=== PATIENT | male | born 1935 | race Caucasian/White ===

== ENCOUNTER 2018-04-06 15:09 | Emergency (ER) | payer MEDICARE, OTHER ==
[~2018-04-06] VITALS: Ht 172.7 cm; Wt 67.4 kg
[2018-04-06 15:50] LABS: BASOPHILS % (AUTO) 0.5 % (0-1); EOSINOPHILS # (AUTO) 0.1 X10'3 (0-0.9); EOSINOPHILS % (AUTO) 1.7 % (0-6); HEMATOCRIT 36.2 % (42.0-52.0); HEMOGLOBIN 11.8 g/dl (14.0-17.9); LYMPHOCYTES # (AUTO) 1.1 X10'3 (1.1-4.8); LYMPHOCYTES % (AUTO) 18.2 % (21-51); MEAN CORPUSCULAR HEMOGLOBIN 30.2 PG (27.0-31.0); MEAN CORPUSCULAR HGB CONC 32.7 % (33.0-36.5); MEAN CORPUSCULAR VOLUME 92.4 FL (78-98); MEAN PLATELET VOLUME 7.8 FL (7.4-10.4); MONOCYTES # (AUTO) 0.5 X10'3 (0-0.9); MONOCYTES % (AUTO) 7.7 % (2-12); NEUTROPHILS # (AUTO) 4.5 X10'3 (1.8-7.7); NEUTROPHILS % (AUTO) 71.9 % (42-75); PLATELET COUNT 213 X10'3 (140-440); RED BLOOD COUNT 3.91 X10'6 (4.70-6.10); RED CELL DISTRIBUTION WIDTH 15.7 % (11.5-14.5); WHITE BLOOD COUNT 6.3 X10'3 (4.5-11.0)
[2018-04-06 15:51] LABS: PARTIAL THROMBOPLASTIN TIME 28 SECONDS (22-32); PROTHROMBIN TIME 10.3 SECONDS (9.0-12.0)
[2018-04-06 15:57] LABS: CLARITY,URINE CLEAR (Clear); COLOR,URINE YELLOW (Yellow); GLUCOSE, URINE NEGATIVE (Neg); KETONES,URINE NEGATIVE (Neg); LEUKOCYTE ESTERASE ,URINE NEGATIVE (Neg); NITRITES, URINE NEGATIVE (Neg); OCCULT BLOOD,URINE NEGATIVE (Neg); PH,URINE 5.5 (4.8-8.0); PROTEIN,URINE NEGATIVE (Neg); UA COLLECTION TYPE VOIDED; UROBILINOGEN,URINE 0.2 E.U/dL (0.2-1.0)
[2018-04-06 15:57] LABS: ALANINE AMINOTRANSFERASE 29 U/L (12-78); ALBUMIN 3.1 G/DL (3.4-5.0); ALBUMIN/GLOBULIN RATIO 0.8 (1.1-1.5); ALKALINE PHOSPHATASE 122 IU/L (46-116); ANION GAP 8 (8-16); ASPARTATE AMINO TRANSFERASE 21 U/L (10-37); BILIRUBIN,TOTAL 0.5 MG/DL (0.1-1.0); BLOOD UREA NITROGEN 44 MG/DL (7-18); BUN/CREATININE RATIO 32.8 (5.4-32.0); CALCIUM 8.9 MG/DL (8.5-10.1); CHLORIDE 105 MMOL/L (99-107); CREATININE 1.34 MG/DL (0.60-1.10); GLUCOSE 237 MG/DL (70-104); POTASSIUM 4.7 MMOL/L (3.5-5.1); SODIUM 139 MMOL/L (135-145); TOTAL CARBON DIOXIDE 26.5 MMOL/L (24-32); TOTAL PROTEIN 7.1 G/DL (6.4-8.2); eGFR 51 ML/MIN
[2018-04-06] MEDS ORDERED: normal saline 1000ML IV soln IVB ONE (16:20)
[2018-04-06 17:16] VITALS: BP 115/66
== END 2018-04-06 17:36 | disposition home or self-care (01) ==
LOC: ER 15:10
DX: F03.90 Unspecified dementia, unspecified severity, without behavioral disturbance, psychotic disturbance, mood disturbance, and anxiety (principal); I48.91 Unspecified atrial fibrillation; I25.10 Atherosclerotic heart disease of native coronary artery without angina pectoris; I10 Essential (primary) hypertension; R41.0 Disorientation, unspecified; I25.2 Old myocardial infarction; E11.9 Type 2 diabetes mellitus without complications; Z95.1 Presence of aortocoronary bypass graft
CPT/HCPCS: 36415; 70450; 71045; 80053; 81003; 83605; 84145; 85025; 85610; 85730; 87040; 99285; J7030

== ENCOUNTER 2018-05-10 11:36 | Inpatient (IN) | payer MEDICARE, OTHER ==
[~2018-05-10] VITALS: Ht 170.2 cm; Wt 87.0 kg
[2018-05-10 13:42] LABS: BASOPHILS % (AUTO) 0.5 % (0-1); EOSINOPHILS # (AUTO) 0.1 X10'3 (0-0.9); EOSINOPHILS % (AUTO) 1.1 % (0-6); HEMATOCRIT 34.3 % (42.0-52.0); HEMOGLOBIN 11.3 g/dl (14.0-17.9); LYMPHOCYTES # (AUTO) 1.2 X10'3 (1.1-4.8); LYMPHOCYTES % (AUTO) 18.6 % (21-51); MEAN CORPUSCULAR HEMOGLOBIN 30.6 PG (27.0-31.0); MEAN CORPUSCULAR VOLUME 92.9 FL (78-98); MEAN PLATELET VOLUME 7.6 FL (7.4-10.4); MONOCYTES # (AUTO) 0.6 X10'3 (0-0.9); MONOCYTES % (AUTO) 10.3 % (2-12); NEUTROPHILS # (AUTO) 4.3 X10'3 (1.8-7.7); NEUTROPHILS % (AUTO) 69.5 % (42-75); PLATELET COUNT 167 X10'3 (140-440); RED CELL DISTRIBUTION WIDTH 16.4 % (11.5-14.5); WHITE BLOOD COUNT 6.2 X10'3 (4.5-11.0)
[2018-05-10 13:56] LABS: ALANINE AMINOTRANSFERASE 29 U/L (12-78); ALBUMIN 3.1 G/DL (3.4-5.0); ALBUMIN/GLOBULIN RATIO 0.8 (1.1-1.5); ALKALINE PHOSPHATASE 97 IU/L (46-116); ANION GAP 5 (8-16); ASPARTATE AMINO TRANSFERASE 17 U/L (10-37); BILIRUBIN,TOTAL 0.8 MG/DL (0.1-1.0); BLOOD UREA NITROGEN 52 MG/DL (7-18); BUN/CREATININE RATIO 32.9 (5.4-32.0); CALCIUM 8.9 MG/DL (8.5-10.1); CHLORIDE 104 MMOL/L (99-107); CREATININE 1.58 MG/DL (0.60-1.10); GLUCOSE 244 MG/DL (70-104); POTASSIUM 4.9 MMOL/L (3.5-5.1); SODIUM 136 MMOL/L (135-145); TOTAL CARBON DIOXIDE 26.7 MMOL/L (24-32); TOTAL PROTEIN 6.8 G/DL (6.4-8.2); eGFR 42 ML/MIN
[2018-05-10] MEDS ORDERED: mag hydrox/Alum hydrox/simeth 30ml oral suspension PO PRN (15:00)
[2018-05-10] MEDS ORDERED: acetaminophen 325mg tablet PO PRN (15:00)
[2018-05-10] MEDS ORDERED: ondansetron/PF 4mg/2ml inj IV PRN (15:00)
[2018-05-10] MEDS ORDERED: magnesium hydroxide 30ml (MOM) UD suspension PO PRN (15:00)
[2018-05-10 15:30] LABS: CHOL/HDL RATIO 2.6 (0.00-4.99); CHOLESTEROL 129 MG/DL (0-200); HDL CHOLESTEROL 50 MG/DL (35-60); LDL CHOLESTEROL 68 MG/DL (50-100); TRIGLYCERIDES 90 MG/DL (20-135)
[2018-05-10 15:37] LABS: CLARITY,URINE Clear (Clear); COLOR,URINE Yellow (Yellow); GLUCOSE, URINE Negative (Neg); KETONES,URINE Negative (Neg); LEUKOCYTE ESTERASE ,URINE Negative (Neg); NITRITES, URINE Negative (Neg); OCCULT BLOOD,URINE Negative (Neg); PROTEIN,URINE Negative (Neg); UROBILINOGEN,URINE 0.2 E.U/dL (0.2-1.0)
[2018-05-10 15:41] LABS: UA COLLECTION TYPE VOIDED
[2018-05-10 16:58] VITALS: BP 135/60
[2018-05-10] MEDS: normal saline 1000ml 1,000 ML IV SCH (17:20)
[2018-05-10 18:00] VITALS: BP 135/60
[2018-05-10] MEDS ORDERED: ATOR40TA PO (20:17)
[2018-05-10] MEDS ORDERED: FURO-150 PO (20:17)
[2018-05-10] MEDS ORDERED: SAXA5TAB PO (20:17)
[2018-05-10] MEDS ORDERED: ALLO100T PO (20:17)
[2018-05-10] MEDS ORDERED: LISI-600 PO (20:17)
[2018-05-10] MEDS ORDERED: ASPI-1265 PO (20:17)
[2018-05-10] MEDS ORDERED: POTA10TA19 PO (20:17)
[2018-05-10] MEDS ORDERED: METO-395 PO (20:17)
[2018-05-10] MEDS ORDERED: GLIP10TA11 PO (20:17)
[2018-05-10] MEDS ORDERED: glucagon, human recombinant 1mg kit SUBCUT PRN (21:00)
[2018-05-10] MEDS ORDERED: dextrose ORAL solution 15 GM/59 ML bottle PO PRN ×2 (21:00)
[2018-05-10] MEDS ORDERED: insulin glargine (Lantus) pen - multi-dose SQ SCH (21:00)
[2018-05-10] MEDS ORDERED: dextrose 50%-water 50ml dispensing syringe IV PRN ×2 (21:00)
[2018-05-10] MEDS ORDERED: insulin Lispro (HumaLOG) vial - multi-dose SQ SCH (21:00)
[2018-05-10] MEDS ORDERED: MESSAGE TO PHARMACY PO ONE (21:00)
[2018-05-10 22:00] VITALS: BP 152/73
[2018-05-11] MEDS: normal saline 1000ml 1,000 ML IV SCH ×2 (00:58→09:11)
[2018-05-11 01:37] LABS: BASOPHILS % (AUTO) 0.6 % (0-1); EOSINOPHILS # (AUTO) 0.1 X10'3 (0-0.9); EOSINOPHILS % (AUTO) 1.4 % (0-6); HEMOGLOBIN 11.4 g/dl (14.0-17.9); LYMPHOCYTES # (AUTO) 1.3 X10'3 (1.1-4.8); LYMPHOCYTES % (AUTO) 21.9 % (21-51); MEAN CORPUSCULAR HGB CONC 33.7 % (33.0-36.5); MEAN PLATELET VOLUME 8.4 FL (7.4-10.4); MONOCYTES # (AUTO) 0.6 X10'3 (0-0.9); MONOCYTES % (AUTO) 9.9 % (2-12); NEUTROPHILS % (AUTO) 66.2 % (42-75); PLATELET COUNT 170 X10'3 (140-440); RED BLOOD COUNT 3.69 X10'6 (4.70-6.10); RED CELL DISTRIBUTION WIDTH 15.4 % (11.5-14.5)
[2018-05-11 01:43] LABS: ALBUMIN 3.1 G/DL (3.4-5.0); ANION GAP 5 (8-16); BLOOD UREA NITROGEN 46 MG/DL (7-18); BUN/CREATININE RATIO 36.8 (5.4-32.0); CALCIUM 9.2 MG/DL (8.5-10.1); CHLORIDE 107 MMOL/L (99-107); CREATININE 1.25 MG/DL (0.60-1.10); GLUCOSE 191 MG/DL (70-104); POTASSIUM 4.7 MMOL/L (3.5-5.1); SODIUM 138 MMOL/L (135-145); TOTAL CARBON DIOXIDE 25.6 MMOL/L (24-32); eGFR 55 ML/MIN
[2018-05-11 02:00] VITALS: BP 119/56
[2018-05-11 06:00] VITALS: BP 114/49
[2018-05-11] MEDS: aspirin 81mg tablet.DR PO SCH ×2 (08:05→09:11)
[2018-05-11] MEDS: atorvastatin 20mg tablet PO SCH ×2 (08:06→09:11)
[2018-05-11 10:00] VITALS: BP 103/58
== END 2018-05-11 12:25 | disposition home or self-care (01) | DRG 683 ==
LOC: ER 11:37 → ED HOLD 14:58 → ORTHO 4S 16:45
PROVIDERS: ADMIT Family Medicine; ATTEND Internal Medicine
DX: N17.9 Acute kidney failure, unspecified (principal); G45.9 Transient cerebral ischemic attack, unspecified; H53.129 Transient visual loss, unspecified eye; E11.319 Type 2 diabetes mellitus with unspecified diabetic retinopathy without macular edema; E78.5 Hyperlipidemia, unspecified; E11.36 Type 2 diabetes mellitus with diabetic cataract; F03.90 Unspecified dementia, unspecified severity, without behavioral disturbance, psychotic disturbance, mood disturbance, and anxiety; I25.10 Atherosclerotic heart disease of native coronary artery without angina pectoris; I48.0 Paroxysmal atrial fibrillation; M10.9 Gout, unspecified; D64.9 Anemia, unspecified; N18.3 Chronic kidney disease, stage 3 (moderate); E11.22 Type 2 diabetes mellitus with diabetic chronic kidney disease; I12.9 Hypertensive chronic kidney disease with stage 1 through stage 4 chronic kidney disease, or unspecified chronic kidney disease; Z91.048 Other nonmedicinal substance allergy status; Z88.1 Allergy status to other antibiotic agents; Z79.82 Long term (current) use of aspirin; Z79.84 Long term (current) use of oral hypoglycemic drugs; Z79.899 Other long term (current) drug therapy; Z82.49 Family history of ischemic heart disease and other diseases of the circulatory system; Z83.3 Family history of diabetes mellitus; Z95.1 Presence of aortocoronary bypass graft
CPT/HCPCS: 36415; 70450; 80048; 80053; 80061; 81003; 82948; 83036; 84484; 85025; 87070; 92616; 93005; 93880; 97110; 97116; 97161; 99285; A6213; J1815; J7030

== ENCOUNTER 2019-01-05 14:14 | Emergency (ER) | payer MEDICARE, OTHER ==
[~2019-01-05] VITALS: Ht 170.2 cm; Wt 63.0 kg
[~2019-01-05 14:14] MED LIST: ALLO100T PO; ASPI-1265 PO; ATOR40TA PO; FURO-150 PO; GLIP10TA11 PO; LISI-600 PO; METO-395 PO; POTA10TA19 PO; SAXA5TAB PO
--- NOTE | 2019-01-05 16:00 | NUR ---
Spoke with provider PA. Mendez, received VO okay if UA not obtained.
[2019-01-05 16:11] LABS: BASOPHILS # (AUTO) 0.1 X10'3 (0-0.2); BASOPHILS % (AUTO) 1.3 % (0-1); EOSINOPHILS # (AUTO) 0.1 X10'3 (0-0.9); EOSINOPHILS % (AUTO) 0.8 % (0-6); HEMATOCRIT 35.7 % (42.0-52.0); HEMOGLOBIN 11.3 g/dl (14.0-17.9); LYMPHOCYTES # (AUTO) 1.2 X10'3 (1.1-4.8); LYMPHOCYTES % (AUTO) 10.1 % (21-51); MEAN CORPUSCULAR HEMOGLOBIN 29.1 PG (27.0-31.0); MEAN CORPUSCULAR HGB CONC 31.7 g/dL (33.0-36.5); MEAN CORPUSCULAR VOLUME 91.8 FL (78-98); MEAN PLATELET VOLUME 7.7 FL (7.4-10.4); MONOCYTES # (AUTO) 0.7 X10'3 (0-0.9); MONOCYTES % (AUTO) 5.7 % (2-12); NEUTROPHILS # (AUTO) 9.7 X10'3 (1.8-7.7); NEUTROPHILS % (AUTO) 82.1 % (42-75); PLATELET COUNT 261 X10'3 (140-440); RED BLOOD COUNT 3.89 X10'6 (4.70-6.10); RED CELL DISTRIBUTION WIDTH 16.4 % (11.5-14.5); WHITE BLOOD COUNT 11.8 X10'3 (4.5-11.0)
[2019-01-05 16:41] LABS: ALANINE AMINOTRANSFERASE 17 U/L (12-78); ALBUMIN 2.7 G/DL (3.4-5.0); ALBUMIN/GLOBULIN RATIO 0.6 (1.1-1.5); ALKALINE PHOSPHATASE 140 IU/L (46-116); ANION GAP 8 (8-16); ASPARTATE AMINO TRANSFERASE 13 U/L (10-37); BILIRUBIN,TOTAL 0.2 MG/DL (0.1-1.0); BLOOD UREA NITROGEN 35 MG/DL (7-18); BUN/CREATININE RATIO 29.9 (5.4-32.0); CALCIUM 10.8 MG/DL (8.5-10.1); CHLORIDE 106 MMOL/L (99-107); CREATININE 1.17 MG/DL (0.60-1.10); GLUCOSE 145 MG/DL (70-104); POTASSIUM 5.4 MMOL/L (3.5-5.1); SODIUM 140 MMOL/L (135-145); TOTAL CARBON DIOXIDE 25.7 MMOL/L (24-32); TOTAL PROTEIN 7.2 G/DL (6.4-8.2); eGFR 59 ML/MIN
[2019-01-05 17:49] VITALS: BP 131/63
== END 2019-01-05 17:50 | disposition home or self-care (01) ==
LOC: ER 14:15
DX: F03.90 Unspecified dementia, unspecified severity, without behavioral disturbance, psychotic disturbance, mood disturbance, and anxiety (principal); R19.7 Diarrhea, unspecified; R06.02 Shortness of breath; I25.10 Atherosclerotic heart disease of native coronary artery without angina pectoris; I48.91 Unspecified atrial fibrillation; I10 Essential (primary) hypertension; E11.9 Type 2 diabetes mellitus without complications; Z95.1 Presence of aortocoronary bypass graft; Z88.1 Allergy status to other antibiotic agents; Z88.8 Allergy status to other drugs, medicaments and biological substances; Z79.82 Long term (current) use of aspirin
CPT/HCPCS: 36415; 71045; 80053; 84484; 85025; 93005; 99284